=== PATIENT | female | born 1995 | race Caucasian/White ===

== ENCOUNTER 2019-01-08 16:33 | Observation (INO) | payer OTHER ==
[2019-01-08] MEDS ORDERED: PNV1TABL50 MT (19:29)
== END 2019-01-08 19:38 | disposition home or self-care (01) ==
LOC: 8 EST LDRP 16:33
PROVIDERS: ADMIT Obstetrics & Gynecology; ATTEND Obstetrics & Gynecology
DX: O62.9 Abnormality of forces of labor, unspecified (principal); Z3A.41 41 weeks gestation of pregnancy
CPT/HCPCS: 76815; 76818; 99281; G0378